=== PATIENT | female | born 1940 | race Caucasian/White ===

== ENCOUNTER → 2021-04-19 09:45 | Outpatient (CLI) | payer MEDICARE, OTHER, SELFPAY ==
[2021-04-19 10:33] LABS: 585 Gram Check PASS; Dizziness NO; Postdiastolic BP 77; Postsystolic BP 129; Prediastolic 72; Presystolic 158; Pulse 64; Site of phlebotomy LAC; Swelling NO; Temperature 97.8; Therapeutic Phleb Comment NO COMMENT; Zero Check Sebra Scale PASS
== END ==
PROVIDERS: Family Provider Internal Medicine; PCP Internal Medicine; Referring Provider Internal Medicine; Visit Provider Internal Medicine
DX: E80.1 Porphyria cutanea tarda (principal)
CPT/HCPCS: 99195

== ENCOUNTER → 2021-06-14 12:50 | Outpatient (CLI) | payer MEDICARE, OTHER, SELFPAY ==
[2021-06-14 13:39] LABS: 585 Gram Check PASS; Dizziness NO; Postdiastolic BP 83; Postsystolic BP 140; Prediastolic 83; Presystolic 133; Pulse 85; Site of phlebotomy RAC; Swelling NO; Temperature 96.4; Therapeutic Phleb Comment NO COMMENT; Zero Check Sebra Scale PASS
[2021-06-14 14:23] LABS: Add Manual Diff / Slide Review NO; Basophils Absolute Auto 100 /uL (0-100); Basophils Percent Auto 1.2 % (0-2); Eosinophils Absolute Auto 200 /uL (0-450); Eosinophils Percent Auto 2.1 % (2-4); Hematocrit 43.1 % (36-46); Hemoglobin 14.2 g/dL (12.0-16.0); Lymphocytes Absolute Auto 1600 /uL (1100-4500); Lymphocytes Percent Auto 14.4 % (25-40); Mean Corpuscular Hemoglobin 29.5 PG (26-34); Mean Corpuscular Volume 89.4 fL (80-100); Monocytes Absolute Auto 1300 /uL (0-900); Monocytes Percent Auto 11.5 % (3-14); Neutrophils Absolute Auto 7700 /uL (1500-7000); Neutrophils Percent Auto 70.8 % (50-75); Platelet Count 282 X10^3/uL (150-400); Red Blood Cell Count 4.82 X10^6/uL (4.0-5.2); Red Cell Distribution Width 12.8 % (11.6-14.8); White Blood Cell Count 10.9 X10^3/uL (4.5-11.0)
[2021-06-14 15:10] LABS: Thyroid Stimulating Hormone 9.68 uIU/mL (0.47-4.68)
[2021-06-14 15:14] LABS: Ferritin 32 ng/mL (11-264)
== END ==
PROVIDERS: Family Provider Internal Medicine; PCP Internal Medicine; Referring Provider Internal Medicine; Visit Provider Internal Medicine
DX: E80.20 Unspecified porphyria (principal); E03.9 Hypothyroidism, unspecified
CPT/HCPCS: 82728; 84439; 84443; 85025; 99195

== ENCOUNTER → 2021-06-20 10:52 | Outpatient (CLI) | payer MEDICARE, OTHER, SELFPAY ==
--- NOTE | 2021-06-20 | DI.US.S_ITS ---
PROCEDURE: US PELVIC COMPLETE INDICATIONS: PELVIC PAIN TECHNIQUE: Real-time scanning was performed of the pelvic organs, with image documentation. Additional endovaginal scanning was necessary due to incomplete visualization of the adnexal and endometrial structures by transabdominal scanning. COMPARISON: None. FINDINGS: Uterus: Prior hysterectomy. Ovaries: Ovaries not identified. No adnexal masses seen. Other: No pathologic free abdominal or pelvic fluid. IMPRESSION: Limited exam demonstrating no source for pelvic pain. If pelvic pain persists, consider CT. We strive to produce accurate, complete, and clear reports of imaging services. To assist us in improving patient care, this report was composed using standard report templates and voice recognition software. Therefore, it may contain abnormal punctuation, insertions and/or omissions. Occasional wrong-word or sound-alike substitutions may occur. Though we review the report and make efforts to correct it, we do recommend that the report be read carefully in proper context to recognize any text inaccuracies. Dictated by: Jeevan Kirk Bekah Interpreted: Jayesh Jamison MD on 06/20/2021 at 11:57 Transcribed by: LAITH on 06/20/2021 at 11:58 Approved by: Jayesh Jamison M.D. on 06/20/2021 at 16:33
== END ==
PROVIDERS: Family Provider Internal Medicine; PCP Internal Medicine; Referring Provider Internal Medicine; Visit Provider Internal Medicine
DX: R10.2 Pelvic and perineal pain (principal)
CPT/HCPCS: 76830; 76856

== ENCOUNTER → 2021-08-26 11:54 | Outpatient (CLI) | payer MEDICARE, OTHER, SELFPAY ==
[2021-08-26 13:03] LABS: Add Manual Diff / Slide Review NO; Basophils Absolute Auto 100 /uL (0-100); Basophils Percent Auto 1.3 % (0-2); Eosinophils Absolute Auto 300 /uL (0-450); Eosinophils Percent Auto 2.8 % (2-4); Hematocrit 41.5 % (36-46); Hemoglobin 13.9 g/dL (12.0-16.0); Lymphocytes Absolute Auto 1600 /uL (1100-4500); Lymphocytes Percent Auto 17.5 % (25-40); Mean Corpuscular HGB Conc 33.6 % (30-36); Mean Corpuscular Hemoglobin 29.8 PG (26-34); Mean Corpuscular Volume 88.7 fL (80-100); Monocytes Absolute Auto 1100 /uL (0-900); Monocytes Percent Auto 12.4 % (3-14); Neutrophils Absolute Auto 6100 /uL (1500-7000); Platelet Count 306 X10^3/uL (150-400); Red Blood Cell Count 4.67 X10^6/uL (4.0-5.2); Red Cell Distribution Width 13.5 % (11.6-14.8); White Blood Cell Count 9.3 X10^3/uL (4.5-11.0)
[2021-08-26 13:10] LABS: 585 Gram Check PASS; Dizziness NO; Postdiastolic BP 87; Postsystolic BP 143; Prediastolic 77; Presystolic 160; Pulse 92; Site of phlebotomy RAC; Swelling NO; Temperature 96.7; Therapeutic Phleb Comment NO COMMENT; Zero Check Sebra Scale PASS
[2021-08-26 14:24] LABS: Alanine Aminotransferase 18 IU/L (<35); Albumin 3.9 g/dL (3.5-5.0); Albumin Globulin Ratio 1.3 (1.0-2.8); Alkaline Phosphatase 72 U/L (38-126); Aspartate Aminotransferase 22 IU/L (14-36); BUN Creatinine Ratio 43.2 (6-22); Bilirubin Total 0.4 mg/dL (0.2-1.3); Blood Urea Nitrogen 32 mg/dL (7-17); C-Reactive Protein Quant < 0.5 mg/dL (<1.0); Calcium 9.3 mg/dL (8.4-10.2); Carbon Dioxide 27 mmol/L (22-32); Chloride 100 mmol/L (98-107); Estimated Glomerular Filt Rate > 60.0 mL/min (>60); Glucose 94 mg/dL (80-110); HEMOLYSIS < 15 (0-50); Potassium 4.1 mmol/L (3.4-5.1); Sodium 133 mmol/L (137-145); Total Protein 6.9 g/dL (6.3-8.2)
== END ==
PROVIDERS: Internal Medicine; Family Provider Internal Medicine; PCP Internal Medicine; Referring Provider Internal Medicine; Visit Provider Internal Medicine
DX: E80.20 Unspecified porphyria (principal); M06.9 Rheumatoid arthritis, unspecified; Z79.899 Other long term (current) drug therapy
CPT/HCPCS: 36415; 80053; 85025; 86140; 99195

== ENCOUNTER → 2021-10-11 16:16 | Outpatient (CLI) | payer MEDICARE, OTHER, SELFPAY ==
[2021-10-11 17:33] LABS: Add Manual Diff / Slide Review NO; Basophils Absolute Auto 200 /uL (0-100); Basophils Percent Auto 1.5 % (0-2); Eosinophils Absolute Auto 200 /uL (0-450); Hematocrit 40.7 % (36-46); Hemoglobin 13.5 g/dL (12.0-16.0); Lymphocytes Absolute Auto 1800 /uL (1100-4500); Lymphocytes Percent Auto 16.8 % (25-40); Mean Corpuscular Hemoglobin 29.3 PG (26-34); Mean Corpuscular Volume 88.6 fL (80-100); Monocytes Absolute Auto 1200 /uL (0-900); Monocytes Percent Auto 11.2 % (3-14); Neutrophils Absolute Auto 7500 /uL (1500-7000); Neutrophils Percent Auto 68.5 % (50-75); Platelet Count 295 X10^3/uL (150-400); Red Blood Cell Count 4.59 X10^6/uL (4.0-5.2); Red Cell Distribution Width 13.3 % (11.6-14.8); White Blood Cell Count 10.9 X10^3/uL (4.5-11.0)
[2021-10-11 17:48] LABS: Alanine Aminotransferase 18 IU/L (<35); Albumin 4.1 g/dL (3.5-5.0); Albumin Globulin Ratio 1.3 (1.0-2.8); Alkaline Phosphatase 76 U/L (38-126); Aspartate Aminotransferase 27 IU/L (14-36); BUN Creatinine Ratio 44.3 (6-22); Bilirubin Total 0.3 mg/dL (0.2-1.3); Blood Urea Nitrogen 35 mg/dL (7-17); Carbon Dioxide 31 mmol/L (22-32); Chloride 100 mmol/L (98-107); Estimated Glomerular Filt Rate > 60 mL/min (>60); Globulin 3.2 g/dL (1.7-4.1); Glucose 97 mg/dL (80-110); HEMOLYSIS < 15 (0-50); Potassium 3.9 mmol/L (3.4-5.1); Sodium 137 mmol/L (137-145); Total Protein 7.3 g/dL (6.3-8.2)
[2021-10-11 18:23] LABS: Ferritin 25 ng/mL (11-264)
== END ==
PROVIDERS: Internal Medicine Medical Oncology; Family Provider Internal Medicine; PCP Internal Medicine; Referring Provider Internal Medicine; Visit Provider Internal Medicine
DX: R01.1 Cardiac murmur, unspecified (principal); E80.1 Porphyria cutanea tarda
CPT/HCPCS: 36415; 80053; 82728; 85025

== ENCOUNTER → 2021-11-02 13:43 | Outpatient (CLI) | payer MEDICARE, OTHER, SELFPAY ==
[2021-11-02 15:53] LABS: COVID19 -Nasal RAPID Negative (Negative)
== END ==
PROVIDERS: Family Provider Internal Medicine; PCP Internal Medicine; Visit Provider Family Medicine Sleep Medicine
DX: Z20.822 Contact with and (suspected) exposure to COVID-19 (principal); Z01.812 Encounter for preprocedural laboratory examination
CPT/HCPCS: 87635; C9803

== ENCOUNTER → 2021-11-03 10:06 | Outpatient (CLI) | payer MEDICARE, OTHER, SELFPAY ==
--- NOTE | 2021-11-03 | DI.ECHO.S_ITS ---
[facility]---------+ [facility] +---------+ : : [address] : : : : [id number] : : : : Phone: [phone]---------+ Echocardiogram Report + + :Name: HAROON PACE Study Date: 11/03/2021 Height: 63 in : :[facility] ReadingLocation: Weight: 145 lb : : Gender: Female BSA: 1.7 m2 : :: 1940 Age: 81 yrs BP: 148/77 mmHg: :Reason For Study: SHORTNESS OF BREATH : :Ordering Physician: XIANG, : :KAMILA Shetty Performed By: Celia Herrera : :Referring: KAMILA OTOOLE : + + Interpretation Summary The left ventricle is normal in size. Left ventricular systolic function appears normal without focal wall motion abnormalities. The ejection fraction is estimated to be 65-70%. The right ventricle is borderline dilated. The right ventricular systolic function is normal. The right ventricular systolic pressure is estimated to be at least 23 mmHg based on an estimated right atrial pressure of 3 mm Hg. The left atrium is mildly dilated. Right atrial size is normal. There is no significant valvular heart disease. The aortic root is normal size. Mild atherosclerotic plaque(s) in the aortic arch. Procedure: A two-dimensional transthoracic echocardiogram with color flow and Doppler was performed. The study quality was technically adequate. There is no prior echocardiogram noted for this patient. The patient was in sinus rhythm with heart rates between 75-85 bpm during the exam. Left Ventricle: The left ventricle is normal in size. Proximal septal thickening is noted. Left ventricular systolic function appears normal without focal wall motion abnormalities. The ejection fraction is estimated to be 65- 70%. Diastolic function could not be accurately assessed due to contradictory data. Right Ventricle: The right ventricle is borderline dilated. The right ventricular systolic function is normal. Atria: The left atrium is mildly dilated. Right atrial size is normal. There is no Doppler evidence for an interatrial shunt. Mitral Valve: The mitral valve is normal in structure and function. There is trace mitral regurgitation. Aortic Valve: The aortic valve is trileaflet. The aortic valve opens well. There is no aortic valve stenosis. No aortic regurgitation is present. Tricuspid Valve: The tricuspid valve is normal in structure and function. There is mild tricuspid regurgitation. The right ventricular systolic pressure is estimated to be at least 23 mmHg based on an estimated right atrial pressure of 3 mm Hg. Pulmonic Valve: The pulmonic valve leaflets are thin and pliable; valve motion is normal. There is no pulmonic valvular regurgitation. There is no significant valvular heart disease. Great Vessels: The aortic root is normal size. The dimensions of the ascending aorta are normal. Mild atherosclerotic plaque(s) in the aortic arch. The IVC is of normal diameter and collapses greater than 50% with a sniff. This suggests a low right atrial pressure of 3 mm Hg. Pericardium/ Pleura There is no pericardial effusion. There is no pleural effusion. MMode/2D Measurements & Calculations LVIDd: 4.2 cm LVOT diam: 2.0 cm LVIDs: 2.6 cm Ao root diam: 3.1 cm FS: 36.5 % asc Aorta Diam: 3.1 cm IVSd: 0.70 cm Ao Arch Diam (Prox Trans): 2.1 cm LVPWd: 0.86 cm LV alvarez. diameter/BSA (cm/m^2): 2.5 LV sys. diameter/BSA (cm/m^2): 1.6 LA A2 area: 21.7 cm2 RA long axis: 4.5 cm LA A4 area: 17.8 cm2 RA area: 13.9 cm2 LA length (vol): 5.5 cm RA vol: 36.3 ml LA vol: 59.1 ml RA : 21.5 ml/m2 LA vol index: 35.1 ml/m2 IVC diam: 1.5 cm RVD1 (basal): 4.0 cm RVD2 (mid): 3.8 cm TAPSE: 2.1 cm Doppler Measurements & Calculations Ao V2 max: 176.9 cm/sec LVOT Max Jair: 114.8 cm/sec Ao V2 mean: 128.9 cm/sec LV V1 max P.3 mmHg Ao max P.5 mmHg LV V1 VTI: 28.0 cm Ao mean P.3 mmHg VICTORIA(I,D): 2.1 cm2 Ao V2 VTI: 39.8 cm VICTORIA(V,D): 2.0 cm2 sev ratio: 0.70 VICTORIA indexed to BSA (cm^2/m^2): 1.3 MV E max jair: 84.6 cm/sec TR max jair: 221.4 cm/sec MV A max jair: 109.2 cm/sec TR max P.6 mmHg MV E/A: 0.77 PA V2 max: 100.1 cm/sec Med Peak E' Jair: 5.7 cm/sec PA V2 mean: 73.7 cm/sec E/E' med: 15.0 PA mean P.3 mmHg Lat Peak E' Jair: 6.9 cm/sec PA pr(Accel): 24.2 mmHg E/E' lat: 12.3 E/e' average: 13.6 MV dec time: 0.33 sec SV(LVOT): 85.0 ml Reading Physician:05:55 PM
--- NOTE | 2021-11-04 19:43 | DI.NM.S_ITS ---
DATE OF SERVICE: 11/03/2021 PROCEDURE PERFORMED: Exercise treadmill stress and rest myocardial perfusion imaging with gating to assess ejection fraction and regional wall motion. ORDERING PROVIDER: Dr. Roderick Nolen. INDICATIONS: The patient is an 81-year-old female with reports of exertional chest discomfort and dyspnea. EXERCISE TREADMILL TESTING: The patient was able to exercise for a total of 6 minutes, 16 seconds on a slightly modified Armando protocol, suggesting excellent exercise capacity with an SIMONA around -31%. The stage II speed was reduced from 2.3 to 2.2 mph because of limiting knee pain, but the grade was increased from 12% to 14%, likely producing equivalent amount of stress. With this, she had a borderline heart rate response, achieving a maximum heart rate of 118 BPM (84% of her predicted maximum). She had a normal blood pressure response. She had no chest discomfort or other anginal symptoms. Her resting ECG shows repolarization abnormalities in the inferior leads that remain unchanged with stress. There were no significant arrhythmias. At 5 minutes of exercise, at a heart rate of 114 BPM, 24.3 millicuries of technetium-99m Myoview was injected and she was imaged 20 minutes later using a gated SPECT acquisition protocol. The day prior while at rest, she had been injected with 25.6 millicuries of technetium-99m Myoview and was imaged 30 minutes later, again using a gated SPECT acquisition protocol. FINDINGS: 1. Raw data: There is fairly good myocardial tracer uptake. The lung/heart ratio was slightly increased at 0.44, which can be a sign of pulmonary congestion although is not visually evident. The TID ratio was normal at 0.70. 2. Quantitated gated SPECT: Post-stress ejection fraction is estimated at 97%, an overestimate because of small left ventricular volumes. There are no focal wall motion abnormalities. Resting ejection fraction is 96%, again likely an overestimate, with a normal end-diastolic volume of 73 mL. 3. Myocardial perfusion imaging: Post-stress supine images shows a completely normal myocardial perfusion pattern without any perfusion defects, supported by normal perfusion imaging in the prone position. The resting images show an identical perfusion pattern without any areas of improvement. IMPRESSION: 1. Normal myocardial perfusion study for ischemia. 2. No perfusion defects to suggest myocardial ischemia or previous myocardial infarction. 3. High-normal left ventricular systolic function without focal wall motion abnormality. There is a mildly increased lung/heart ratio which can indicate pulmonary congestion but is somewhat nonspecific and clinical correlation is recommended. 4. Excellent exercise capacity with a borderline blunted heart rate response. She had no angina or change in her baseline repolarization abnormalities to suggest ischemia. There were no arrhythmias. Ibis Skinner - FELTON/donald/meli doc#: [id number]/job#: [id number] dd: 11/04/2021 17:09:00 dt: 11/04/2021 18:06:00 DICTATING MD/COPIES TO: Roderick Guerrero MD; Roderick Nolen M.D. COPIES MNE: PARMINDER;
== END ==
PROVIDERS: Family Provider Internal Medicine; PCP Internal Medicine; Referring Provider Internal Medicine; Visit Provider Internal Medicine
DX: R06.02 Shortness of breath (principal); I70.0 Atherosclerosis of aorta; I07.1 Rheumatic tricuspid insufficiency
CPT/HCPCS: 78452; 93017; 93306; A9502

== ENCOUNTER → 2022-01-24 15:38 | Outpatient (CLI) | payer MEDICARE, OTHER, SELFPAY ==
[2022-01-24 17:45] LABS: Free T3, Triiodothyronine Free 3.12 pg/mL (2.77-5.27); Free T4, Direct Thyroxine 1.55 ng/dL (0.78-2.19)
[2022-01-24 17:59] LABS: Thyroid Stimulating Hormone 0.709 uIU/mL (0.47-4.68)
== END ==
PROVIDERS: Family Provider Internal Medicine; PCP Pediatrics; Referring Provider Pediatrics; Visit Provider Pediatrics
DX: E03.9 Hypothyroidism, unspecified (principal)
CPT/HCPCS: 36415; 84439; 84443; 84481

== ENCOUNTER → 2023-01-17 10:52 | Outpatient (CLI) | payer MEDICARE, OTHER, SELFPAY ==
[2023-01-17 11:42] LABS: Hemoglobin 14.8 g/dL (12.0-16.0); Mean Corpuscular HGB Conc 33.6 % (30-36); Mean Corpuscular Hemoglobin 29.6 PG (26-34); Mean Corpuscular Volume 88.1 fL (80-100); Platelet Count 316 X10^3/uL (150-400); Red Blood Cell Count 4.99 X10^6/uL (4.0-5.2); Red Cell Distribution Width 13.1 % (11.6-14.8); White Blood Cell Count 9.6 X10^3/uL (4.5-11.0)
[2023-01-17 12:13] LABS: BUN Creatinine Ratio 38.3 (6-22); Blood Urea Nitrogen 23 mg/dL (7-17); Calcium 9.3 mg/dL (8.4-10.2); Carbon Dioxide 32 mmol/L (22-32); Chloride 98 mmol/L (98-107); Estimated Glomerular Filt Rate > 60 mL/min (>60); Glucose 56 mg/dL (80-110); HEMOLYSIS < 15 (0-50); Potassium 3.9 mmol/L (3.4-5.1); Sodium 137 mmol/L (137-145)
[2023-01-17 12:44] LABS: TSH w/ Reflex to FT4 0.43 uIU/mL (0.47-4.68)
[2023-01-17 13:18] LABS: Free T4, Direct Thyroxine 2.16 ng/dL (0.78-2.19)
[2023-01-17 17:08] LABS: Creatinine Urine Random 48.3 mg/dL
[2023-01-17 17:11] LABS: Microalbumi Creatinin Ratio Ur 18.6 ug/mg CR (<30); Microalbumin Urine Random 0.9 mg/dL (0-1.6)
== END ==
PROVIDERS: Family Provider Internal Medicine; PCP Family Medicine; Referring Provider Family Medicine; Visit Provider Family Medicine
DX: E03.9 Hypothyroidism, unspecified (principal); M81.0 Age-related osteoporosis without current pathological fracture; E78.5 Hyperlipidemia, unspecified; I10 Essential (primary) hypertension; M06.9 Rheumatoid arthritis, unspecified
CPT/HCPCS: 36415; 80048; 82043; 82570; 84439; 84443; 85027

== ENCOUNTER → 2023-07-16 11:44 | Outpatient (CLI) | payer MEDICARE, OTHER, SELFPAY ==
[2023-07-16 13:27] LABS: Alanine Aminotransferase 24 IU/L (<35); Albumin 4.2 g/dL (3.5-5.0); Albumin Globulin Ratio 1.3 (1.0-2.8); Alkaline Phosphatase 85 U/L (38-126); Aspartate Aminotransferase 27 IU/L (14-36); BUN Creatinine Ratio 37.9 (6-22); Bilirubin Total 0.6 mg/dL (0.2-1.3); Blood Urea Nitrogen 25 mg/dL (7-17); Calcium 9.7 mg/dL (8.4-10.2); Carbon Dioxide 28 mmol/L (22-32); Chloride 98 mmol/L (98-107); Estimated Glomerular Filt Rate > 60 mL/min (>60); Globulin 3.2 g/dL (1.7-4.1); Glucose 85 mg/dL (80-110); HEMOLYSIS < 15 (0-50); Potassium 4.1 mmol/L (3.4-5.1); Sodium 135 mmol/L (137-145); Total Protein 7.4 g/dL (6.3-8.2)
[2023-07-16 15:19] LABS: Creatinine Urine Random 34.1 mg/dL
[2023-07-16 15:23] LABS: Microalbumi Creatinin Ratio Ur 29.3 ug/mg CR (<30)
[2023-07-16 17:24] LABS: Free T3, Triiodothyronine Free 2.67 pg/mL (2.77-5.27); Free T4, Direct Thyroxine 1.51 ng/dL (0.78-2.19)
[2023-07-16 17:36] LABS: Thyroid Stimulating Hormone 3.77 uIU/mL (0.47-4.68)
== END ==
PROVIDERS: Family Provider Internal Medicine; PCP Family Medicine; Referring Provider Family Medicine; Visit Provider Family Medicine
DX: I10 Essential (primary) hypertension (principal); E03.9 Hypothyroidism, unspecified; M81.0 Age-related osteoporosis without current pathological fracture
CPT/HCPCS: 36415; 80053; 82043; 82570; 84439; 84443; 84481

== ENCOUNTER → 2023-08-09 11:09 | Outpatient (CLI) | payer MEDICARE, OTHER, SELFPAY ==
[2023-08-09 11:38] LABS: Add Manual Diff / Slide Review NO; Basophils Absolute Auto 100 /uL (0-100); Basophils Percent Auto 1.3 % (0-2); Eosinophils Absolute Auto 200 /uL (0-450); Eosinophils Percent Auto 2.1 % (2-4); Hematocrit 44.8 % (36-46); Lymphocytes Absolute Auto 1500 /uL (1100-4500); Mean Corpuscular HGB Conc 33.6 % (30-36); Mean Corpuscular Volume 89.5 fL (80-100); Monocytes Absolute Auto 1100 /uL (0-900); Monocytes Percent Auto 12.7 % (3-14); Neutrophils Absolute Auto 6000 /uL (1500-7000); Neutrophils Percent Auto 66.9 % (50-75); Platelet Count 375 X10^3/uL (150-400); Red Blood Cell Count 5.01 X10^6/uL (4.0-5.2); Red Cell Distribution Width 13.4 % (11.6-14.8)
[2023-08-09 11:52] LABS: Alanine Aminotransferase 24 IU/L (<35); Albumin 4.5 g/dL (3.5-5.0); Albumin Globulin Ratio 1.3 (1.0-2.8); Alkaline Phosphatase 91 U/L (38-126); Aspartate Aminotransferase 31 IU/L (14-36); BUN Creatinine Ratio 42.1 (6-22); Bilirubin Total 0.6 mg/dL (0.2-1.3); Blood Urea Nitrogen 24 mg/dL (7-17); Calcium 9.4 mg/dL (8.4-10.2); Carbon Dioxide 28 mmol/L (22-32); Chloride 100 mmol/L (98-107); Creatine Kinase 35 U/L (30-135); Estimated Glomerular Filt Rate > 60 mL/min (>60); Globulin 3.6 g/dL (1.7-4.1); Glucose 104 mg/dL (80-110); HEMOLYSIS < 15 (0-50); Sodium 136 mmol/L (137-145); Total Protein 8.1 g/dL (6.3-8.2)
[2023-08-09 12:08] LABS: Troponin I < 0.012 ng/mL (0.01-0.034)
[2023-08-09 12:11] LABS: Free T4, Direct Thyroxine 1.93 ng/dL (0.78-2.19)
[2023-08-09 12:24] LABS: Thyroid Stimulating Hormone 1.98 uIU/mL (0.47-4.68)
[2023-08-21 16:08] LABS: Magnesium, RBC 4.6 mg/dL (3.7-7.0)
== END ==
PROVIDERS: Family Provider Internal Medicine; PCP Family Medicine; Referring Provider Family Medicine; Visit Provider Family Medicine
DX: I10 Essential (primary) hypertension (principal); E03.9 Hypothyroidism, unspecified; M81.0 Age-related osteoporosis without current pathological fracture; D69.6 Thrombocytopenia, unspecified
CPT/HCPCS: 36415; 80053; 82550; 83735; 84439; 84443; 84481; 84484; 85025

== ENCOUNTER → 2023-10-11 13:09 | Outpatient (CLI) | payer MEDICARE, OTHER, SELFPAY ==
[2023-10-11 14:36] LABS: Hematocrit 44.1 % (36-46)
[2023-10-11 15:44] LABS: Ferritin 38 ng/mL (11-264)
== END ==
PROVIDERS: Family Provider Internal Medicine; PCP Family Medicine; Referring Provider Internal Medicine Hematology & Oncology; Visit Provider Internal Medicine Hematology & Oncology
DX: E80.1 Porphyria cutanea tarda (principal)
CPT/HCPCS: 36415; 82728; 85014

== ENCOUNTER → 2023-10-19 09:48 | Outpatient (CLI) | payer MEDICARE, OTHER, SELFPAY ==
[2023-10-19 11:11] LABS: Add Manual Diff / Slide Review NO; Basophils Absolute Auto 200 /uL (0-100); Basophils Percent Auto 1.8 % (0-2); Eosinophils Absolute Auto 200 /uL (0-450); Eosinophils Percent Auto 1.8 % (2-4); Hematocrit 40.4 % (36-46); Hemoglobin 13.6 g/dL (12.0-16.0); Lymphocytes Absolute Auto 2000 /uL (1100-4500); Lymphocytes Percent Auto 18.3 % (25-40); Mean Corpuscular HGB Conc 33.6 % (30-36); Mean Corpuscular Hemoglobin 30.1 PG (26-34); Mean Corpuscular Volume 89.5 fL (80-100); Monocytes Absolute Auto 1400 /uL (0-900); Monocytes Percent Auto 12.8 % (3-14); Neutrophils Absolute Auto 7100 /uL (1500-7000); Neutrophils Percent Auto 65.3 % (50-75); Platelet Count 456 X10^3/uL (150-400); Red Blood Cell Count 4.51 X10^6/uL (4.0-5.2); Red Cell Distribution Width 14.2 % (11.6-14.8); White Blood Cell Count 10.8 X10^3/uL (4.5-11.0)
[2023-10-19 11:33] LABS: Alanine Aminotransferase 21 IU/L (<35); Albumin 4.3 g/dL (3.5-5.0); Albumin Globulin Ratio 1.5 (1.0-2.8); Alkaline Phosphatase 79 U/L (38-126); Aspartate Aminotransferase 27 IU/L (14-36); BUN Creatinine Ratio 44.3 (6-22); Bilirubin Total 0.6 mg/dL (0.2-1.3); Blood Urea Nitrogen 27 mg/dL (7-17); Calcium 9.3 mg/dL (8.4-10.2); Carbon Dioxide 29 mmol/L (22-32); Chloride 102 mmol/L (98-107); Estimated Glomerular Filt Rate > 60 mL/min (>60); Globulin 2.9 g/dL (1.7-4.1); Glucose 103 mg/dL (80-110); HEMOLYSIS < 15 (0-50); Potassium 4.4 mmol/L (3.4-5.1); Sodium 136 mmol/L (137-145); Total Protein 7.2 g/dL (6.3-8.2)
[2023-10-19 11:38] LABS: C-Reactive Protein Quant < 0.5 mg/dL (<1.0)
[2023-10-19 11:48] LABS: Free T3, Triiodothyronine Free 2.72 pg/mL (2.77-5.27)
[2023-10-19 12:01] LABS: Thyroid Stimulating Hormone 6.87 uIU/mL (0.47-4.68)
== END ==
PROVIDERS: Family Provider Internal Medicine; PCP Family Medicine; Referring Provider Internal Medicine; Visit Provider Internal Medicine
DX: M05.79 Rheumatoid arthritis with rheumatoid factor of multiple sites without organ or systems involvement (principal); I10 Essential (primary) hypertension; D69.6 Thrombocytopenia, unspecified; E03.9 Hypothyroidism, unspecified
CPT/HCPCS: 36415; 80053; 84439; 84443; 84481; 85025; 86140

== ENCOUNTER → 2023-11-13 15:09 | Outpatient (CLI) | payer MEDICARE, OTHER, SELFPAY ==
--- NOTE | 2023-11-13 15:11 | DI.ECHO.S_ITS ---
[facility] + + Hospital : : [facility] . : : [facility] : : [place], : : [place] [address] : : Phone: [phone] Echocardiogram Report + + :Name: HAROON PACE Study Date: 11/13/2023 Height: 63 in : :[facility] ReadingLocation: Weight: 156 lb : : Gender: Female BSA: 1.7 m2 : :: 1940 Age: 83 yrs BP: 136/67 mmHg: :Reason For Study: HEART MURMUR : :Ordering Physician: MAUREEN, : :HERRERA Performed By: Fredy Nicholas : :Referring: HERRERA REDDY : + + Interpretation Summary 1) Normal left ventricular thickness, size, wall motion, and systolic function (EF 65-70%). 2) Normal right ventricular size and function. 3) Increased gradient across the LVOT (mean gradient 16mmHg, peak gradient 22mmHg). Visually, no significant valvular stenosis or regurgitation present. No systolic anterior motion of the mitral valve present. The increased gradient may be from high flow state. 4) Compared to the Echo done 11/03/2021, no significant change in cardiac structure. Procedure: A two-dimensional transthoracic echocardiogram with color flow and Doppler was performed. The study quality was technically adequate. Comparison is made with the echocardiogram of 11/03/21. The patient was in sinus rhythm with heart rates between 75-85 bpm during the exam. Left Ventricle: The left ventricle is normal in size. Left ventricular wall thickness is normal. Left ventricular systolic function appears normal without focal wall motion abnormalities. The ejection fraction is estimated to be 65- 70%. Right Ventricle: The right ventricle is normal size. The right ventricular systolic function is normal. Atria: The left atrial size is normal. Right atrial size is normal. The interatrial septum grossly appears intact with no obvious evidence for an atrial septal defect. Mitral Valve: The mitral valve is normal. No systolic anterior motion of the mitral valve. There is no mitral valve stenosis. There is trace mitral regurgitation. Aortic Valve: The aortic valve is trileaflet. The aortic valve is mildly calcified. No aortic stenosis visually. No aortic regurgitation is present. Tricuspid Valve: The tricuspid valve is not well visualized, but is grossly normal. There is no tricuspid stenosis. There is a trace or physiologic amount of tricuspid regurgitation. Pulmonic Valve: The pulmonic valve is not well visualized. There is no pulmonic valvular stenosis. There is no pulmonic valvular regurgitation. Great Vessels: The aortic root is normal size. The ascending aorta could not be visualized. Mild atherosclerotic plaque(s) in the aortic arch. The IVC is of normal diameter and collapses greater than 50% with a sniff. This suggests a low right atrial pressure of 3 mm Hg. Pericardium/ Pleura There is no pericardial effusion. There is no pleural effusion. MMode/2D Measurements & Calculations LVIDd: 3.5 cm LVOT diam: 2.1 cm LVIDs: 2.2 cm Ao root diam: 2.8 cm IVSd: 1.3 cm asc Aorta Diam: 2.9 cm LVPWd: 0.89 cm Ao Arch Diam (Prox Trans): 2.6 cm LV alvarez. diameter/BSA (cm/m^2): 2.0 LV sys. diameter/BSA (cm/m^2): 1.2 FS: 38.2 % LA A2 area: 15.7 cm2 RA long axis: 4.4 cm LA A4 area: 19.2 cm2 RA area: 13.3 cm2 LA length (vol): 5.3 cm RA vol: 34.1 ml LA vol: 48.1 ml RA : 19.6 ml/m2 LA vol index: 27.7 ml/m2 RVD1 (basal): 3.7 cm IVC diam: 1.8 cm RVD2 (mid): 3.2 cm TAPSE: 2.9 cm Doppler Measurements & Calculations Ao V2 max: 235.3 cm/sec MV E max jair: 70.9 cm/sec Ao V2 mean: 196.0 cm/sec MV A max jair: 100.0 cm/sec Ao V2 VTI: 60.4 cm MV E/A: 0.71 Ao max P.2 mmHg Med Peak E' Jair: 6.3 cm/sec Ao mean P.9 mmHg E/E' med: 11.3 Lat Peak E' Jair: 8.2 cm/sec E/E' lat: 8.7 E/e' average: 10.0 MV dec time: 0.22 sec PA V2 max: 122.2 cm/sec PA V2 mean: 89.1 cm/sec PA mean P.4 mmHg PA pr(Accel): 36.2 mmHg Reading Physician:05:14 PM
--- NOTE | 2023-11-13 15:11 | DI.MG.S_ITS ---
UNILATERAL LEFT DIGITAL SCREENING MAMMOGRAM 3D/2D WITH CAD POST MASTECTOMY: 11/13/2023 CLINICAL: Routine screening. Personal history of right breast cancer. Comparison is made to exams dated: 01/19/2020 mammogram, 12/16/2018 mammogram, and 12/12/2018 mammogram - [facility]. There are scattered areas of fibroglandular density in the left breast (category b / 25%-50% glandular tissue). Current study was also evaluated with a Computer Aided Detection (CAD) system. There is a focal asymmetry in the left breast at 12 o'clock middle depth. No other significant masses or calcifications are seen in the breast. IMPRESSION: INCOMPLETE: NEEDS ADDITIONAL IMAGING EVALUATION The focal asymmetry in the left breast is indeterminate. Additional views with possible ultrasound are recommended. This exam was interpreted at Station ID: [id number]. NOTE: For mammograms, a report in lay terms will be sent to the patient. Approximately 15% of breast malignancies will not be visualized mammographically. In the management of a palpable breast mass, a negative mammogram must not discourage biopsy of a clinically suspicious lesion. Electronically Signed By: Maki cee/julieta:11/14/2023 16:08:26 letter sent: Additional Imaging Needed ACR BI-RADS Category 0: Incomplete 3340F
== END ==
PROVIDERS: Family Provider Internal Medicine; PCP Family Medicine; Referring Provider Family Medicine; Visit Provider Family Medicine
DX: Z12.31 Encounter for screening mammogram for malignant neoplasm of breast (principal); Z85.3 Personal history of malignant neoplasm of breast; R92.322 Mammographic fibroglandular density, left breast; I70.0 Atherosclerosis of aorta; I10 Essential (primary) hypertension; R01.1 Cardiac murmur, unspecified; Z90.11 Acquired absence of right breast and nipple
CPT/HCPCS: 77063; 77067; 93306

== ENCOUNTER → 2023-11-29 11:46 | Outpatient (CLI) | payer MEDICARE, OTHER, SELFPAY ==
[2023-11-29 13:08] LABS: Add Manual Diff / Slide Review NO; Basophils Absolute Auto 100 /uL (0-100); Basophils Percent Auto 1.1 % (0-2); Eosinophils Absolute Auto 300 /uL (0-450); Eosinophils Percent Auto 2.4 % (2-4); Hematocrit 43.4 % (36-46); Hemoglobin 14.6 g/dL (12.0-16.0); Lymphocytes Absolute Auto 1700 /uL (1100-4500); Lymphocytes Percent Auto 15.4 % (25-40); Mean Corpuscular HGB Conc 33.7 % (30-36); Mean Corpuscular Hemoglobin 29.7 PG (26-34); Mean Corpuscular Volume 88.2 fL (80-100); Monocytes Absolute Auto 1100 /uL (0-900); Monocytes Percent Auto 10.4 % (3-14); Neutrophils Absolute Auto 7600 /uL (1500-7000); Neutrophils Percent Auto 70.7 % (50-75); Platelet Count 352 X10^3/uL (150-400); Red Blood Cell Count 4.92 X10^6/uL (4.0-5.2); Red Cell Distribution Width 12.8 % (11.6-14.8); White Blood Cell Count 10.7 X10^3/uL (4.5-11.0)
[2023-11-29 13:50] LABS: Free T3, Triiodothyronine Free 2.98 pg/mL (2.77-5.27); Free T4, Direct Thyroxine 1.29 ng/dL (0.78-2.19)
[2023-11-29 14:03] LABS: Thyroid Stimulating Hormone 3.58 uIU/mL (0.47-4.68)
[2023-11-29 14:06] LABS: Ferritin 31 ng/mL (11-264)
== END ==
PROVIDERS: Family Provider Internal Medicine; PCP Family Medicine; Referring Provider Family Medicine; Visit Provider Family Medicine
DX: E03.9 Hypothyroidism, unspecified (principal); D69.6 Thrombocytopenia, unspecified; E80.1 Porphyria cutanea tarda; R79.89 Other specified abnormal findings of blood chemistry
CPT/HCPCS: 36415; 82728; 84439; 84443; 84481; 85025

== ENCOUNTER → 2023-12-05 11:51 | Outpatient (CLI) | payer MEDICARE, OTHER, SELFPAY ==
--- NOTE | 2023-12-05 11:52 | DI.US.S_ITS ---
ULTRASOUND OF LEFT BREAST: 12/05/2023 CLINICAL: Follow up from addtional views. Comparison is made to exams dated: 12/05/2023 mammogram, 11/13/2023 mammogram - [facility], 01/19/2020 mammogram, and 01/14/2019 breast MRI - [facility]. Color flow and real-time ultrasound of the left breast were performed. There is a 7 mm oval focus of glandular tissue in the left breast at 12 o'clock middle depth. This oval area of tissue is isoechoic to other areas of glandular tissue, and correlates with mammography findings. Color flow imaging demonstrates that there is no vascularity present. IMPRESSION: PROBABLY BENIGN The 7 mm oval area of glandular tissue in the left breast corresponds to the residual mammogram finding, is probably benign. A follow-up left mammogram in 6 months is recommended to demonstrate stability. Findings and recommendations were conveyed to the patient at time of exam. This exam was interpreted at Station ID: [id number]. Electronically Signed By: Devora rosado/:12/05/2023 13:37:01 letter sent: Followup Recommended Ultrasound BI-RADS: 3 Probably benign
--- NOTE | 2023-12-05 11:52 | DI.MG.S_ITS ---
UNILATERAL LEFT DIGITAL DIAGNOSTIC MAMMOGRAM 3D/2D WITH ADDITIONAL VIEWS: 12/05/2023 CLINICAL: Additional evaluation requested from prior study. Comparison is made to exams dated: 11/13/2023 mammogram - [facility], 01/19/2020 mammogram, 12/16/2018 mammogram, and 12/12/2018 mammogram - [facility]. There are scattered areas of fibroglandular density in the left breast (category b / 25%-50% glandular tissue). Prior asymmetry in the left breast at 12 o'clock in the middle depth partially dissapates with focal compression. There is a possible residual 0.7 cm asymmetry 5 cm from the nipple. No significant masses, calcifications, or other findings are seen in the breast. IMPRESSION: INCOMPLETE: NEEDS ADDITIONAL IMAGING EVALUATION Partial resolution of screening mammography abnormality with additional views. Ultrasound for further evaluation of a possible residual asymmetry is recommended and was performed immediately following this exam. This exam was interpreted at Station ID: [id number]. NOTE: For mammograms, a report in lay terms will be sent to the patient. Approximately 15% of breast malignancies will not be visualized mammographically. In the management of a palpable breast mass, a negative mammogram must not discourage biopsy of a clinically suspicious lesion. Electronically Signed By: Devora rosado/:12/05/2023 12:58:07 ACR BI-RADS Category 0: Incomplete 3340F
== END ==
PROVIDERS: Family Provider Internal Medicine; PCP Family Medicine; Referring Provider Family Medicine; Visit Provider Family Medicine
DX: R92.8 Other abnormal and inconclusive findings on diagnostic imaging of breast (principal); R92.322 Mammographic fibroglandular density, left breast
CPT/HCPCS: 76642; 77065; G0279

== ENCOUNTER → 2023-12-12 09:38 | Outpatient (CLI) | payer MEDICARE, OTHER, SELFPAY ==
[2023-12-12 10:10] LABS: Add Manual Diff / Slide Review NO; Basophils Absolute Auto 100 /uL (0-100); Basophils Percent Auto 1.4 % (0-2); Eosinophils Absolute Auto 300 /uL (0-450); Eosinophils Percent Auto 3.3 % (2-4); Hematocrit 41.8 % (36-46); Hemoglobin 14.5 g/dL (12.0-16.0); Lymphocytes Absolute Auto 1500 /uL (1100-4500); Lymphocytes Percent Auto 14.8 % (25-40); Mean Corpuscular HGB Conc 34.6 % (30-36); Mean Corpuscular Hemoglobin 30.2 PG (26-34); Mean Corpuscular Volume 87.4 fL (80-100); Monocytes Absolute Auto 1200 /uL (0-900); Monocytes Percent Auto 12.4 % (3-14); Neutrophils Absolute Auto 6800 /uL (1500-7000); Neutrophils Percent Auto 68.1 % (50-75); Platelet Count 385 X10^3/uL (150-400); Red Blood Cell Count 4.79 X10^6/uL (4.0-5.2); Red Cell Distribution Width 13.2 % (11.6-14.8)
[2023-12-12 11:58] LABS: Ferritin 37 ng/mL (11-264)
== END ==
LOC: LAB 09:39
PROVIDERS: Family Provider Internal Medicine; PCP Family Medicine; Referring Provider Family Medicine; Visit Provider Family Medicine
DX: D69.6 Thrombocytopenia, unspecified (principal); E80.1 Porphyria cutanea tarda; R79.89 Other specified abnormal findings of blood chemistry
CPT/HCPCS: 36415; 82728; 85025

== ENCOUNTER → 2023-12-25 13:43 | Outpatient (CLI) | payer MEDICARE, OTHER, SELFPAY ==
[2023-12-25 14:41] LABS: Add Manual Diff / Slide Review NO; Basophils Absolute Auto 100 /uL (0-100); Eosinophils Absolute Auto 300 /uL (0-450); Eosinophils Percent Auto 2.6 % (2-4); Hematocrit 41.8 % (36-46); Hemoglobin 14.1 g/dL (12.0-16.0); Lymphocytes Absolute Auto 1700 /uL (1100-4500); Lymphocytes Percent Auto 17.2 % (25-40); Mean Corpuscular HGB Conc 33.8 % (30-36); Mean Corpuscular Hemoglobin 29.8 PG (26-34); Monocytes Absolute Auto 900 /uL (0-900); Monocytes Percent Auto 8.6 % (3-14); Neutrophils Absolute Auto 7000 /uL (1500-7000); Neutrophils Percent Auto 70.6 % (50-75); Platelet Count 344 X10^3/uL (150-400); Red Blood Cell Count 4.75 X10^6/uL (4.0-5.2); Red Cell Distribution Width 13.5 % (11.6-14.8)
[2023-12-25 15:41] LABS: Ferritin 36 ng/mL (11-264)
[2023-12-28 10:05] LABS: Free T3, Triiodothyronine Free 3.24 pg/mL (2.77-5.27)
== END ==
PROVIDERS: Family Provider Internal Medicine; PCP Family Medicine; Referring Provider Family Medicine; Visit Provider Family Medicine
DX: D69.6 Thrombocytopenia, unspecified (principal); E80.1 Porphyria cutanea tarda; R79.89 Other specified abnormal findings of blood chemistry
CPT/HCPCS: 36415; 82728; 84439; 84443; 84481; 85025

== ENCOUNTER → 2024-01-09 10:44 | Outpatient (CLI) | payer MEDICARE, OTHER, SELFPAY ==
[2024-01-09 11:03] LABS: Hematocrit 44.6 % (36-46); Hemoglobin 14.9 g/dL (12.0-16.0)
[2024-01-09 11:24] LABS: BUN Creatinine Ratio 42.6 (6-22); Blood Urea Nitrogen 26 mg/dL (7-17); Calcium 9.3 mg/dL (8.4-10.2); Carbon Dioxide 24 mmol/L (22-32); Chloride 102 mmol/L (98-107); Estimated Glomerular Filt Rate > 60 mL/min (>60); Glucose 97 mg/dL (80-110); HEMOLYSIS 42 (0-50); Potassium 4.2 mmol/L (3.4-5.1); Sodium 136 mmol/L (137-145)
[2024-01-09 11:35] LABS: 585 Gram Check PASS; Amount Collected in g 585 g; Amount Collected mL calc 508 mL; Patient Weight <110 lb NO; Postdiastolic BP 80 mmHg; Postsystolic BP 151 mmHg; Prediastolic 84 mmHg; Presystolic 154 mmHg; Pulse 88 bpm; Site of phlebotomy Left antecubital; Temperature 97.1; Therapeutic Phleb Consent Chec Consent signed @ reg; Therapeutic Phleb Start Time 1100; Therapeutic Phleb Stop Time 1130; Zero Check Sebra Scale PASS
== END ==
PROVIDERS: Family Provider Internal Medicine; PCP Family Medicine; Referring Provider Family Medicine; Visit Provider Family Medicine
DX: I10 Essential (primary) hypertension (principal); R79.89 Other specified abnormal findings of blood chemistry; R71.8 Other abnormality of red blood cells
CPT/HCPCS: 36415; 80048; 85014; 85018; 99195

== ENCOUNTER → 2024-01-15 12:17 | Outpatient (CLI) | payer MEDICARE, OTHER, SELFPAY ==
[2024-01-15 14:12] LABS: COVID-19 CEPHEID 4-PLEX PCR Negative (Negative); Influenza A - CEPHEID Flu A NEGATIVE (NEGATIVE); Influenza B - CEPHEID Flu B NEGATIVE (NEGATIVE); Respiratory Syncytial Virus Negative (Negative)
== END ==
PROVIDERS: Family Provider Internal Medicine; PCP Family Medicine; Visit Provider Family Medicine
DX: R05.1 Acute cough (principal); E80.1 Porphyria cutanea tarda
CPT/HCPCS: 0241U

== ENCOUNTER → 2024-02-29 14:49 | Outpatient (CLI) | payer MEDICARE, OTHER, SELFPAY ==
[2024-02-29 16:40] LABS: Hematocrit 43.7 % (36-46); Hemoglobin 14.3 g/dL (12.0-16.0); Mean Corpuscular HGB Conc 32.7 % (30-36); Mean Corpuscular Hemoglobin 29.3 PG (26-34); Mean Corpuscular Volume 89.6 fL (80-100); Platelet Count 437 X10^3/uL (150-400); Red Blood Cell Count 4.88 X10^6/uL (4.0-5.2); Red Cell Distribution Width 13.3 % (11.6-14.8); White Blood Cell Count 11.8 X10^3/uL (4.5-11.0)
[2024-02-29 18:13] LABS: Ferritin 29 ng/mL (11-264)
== END ==
PROVIDERS: Family Provider Internal Medicine; PCP Family Medicine; Referring Provider Family Medicine; Visit Provider Family Medicine
DX: E80.1 Porphyria cutanea tarda (principal)
CPT/HCPCS: 36415; 82728; 85027

== ENCOUNTER → 2024-07-07 11:20 | Outpatient (CLI) | payer MEDICARE, OTHER, SELFPAY ==
--- NOTE | 2024-07-07 11:24 | DI.MG.S_ITS ---
UNILATERAL LEFT DIGITAL DIAGNOSTIC MAMMOGRAM 3D/2D: 07/07/2024 CLINICAL: Short term follow up. Comparison is made to exams dated: 12/05/2023 mammogram, 11/13/2023 mammogram - [facility], 12/16/2018 mammogram, 12/12/2018 mammogram, and 12/04/2018 mammogram - [facility]. There are scattered areas of fibroglandular density (category b / 25%-50% glandular tissue). The asymmetry seen in the left breast upper middle depth is less prominent than prior mammogram dating back to 12/05/2023. No prior ultrasound correlate identified. No other significant masses, calcifications, or other findings are seen in the breast. IMPRESSION: PROBABLY BENIGN Left breast asymmetry in the middle upper region, less prominent since November 2023 and without prior ultrasound correlate. Finding is probably benign. Recommend follow-up mammogram in 6 months to demonstrate 1 year stability. Findings and recommendations were conveyed to the patient during today's evaluation. This exam was interpreted at Station ID: [id number]. NOTE: For mammograms, a report in lay terms will be sent to the patient. Approximately 15% of breast malignancies will not be visualized mammographically. In the management of a palpable breast mass, a negative mammogram must not discourage biopsy of a clinically suspicious lesion. Electronically Signed By: Stefania Farfan M.D., Ph.D. eb/:07/07/2024 13:02:06 letter sent: Followup Recommended ACR BI-RADS Category 3: Probably Benign
== END ==
PROVIDERS: Referring Provider Family Medicine; Visit Provider Family Medicine
DX: R92.8 Other abnormal and inconclusive findings on diagnostic imaging of breast (principal); N64.89 Other specified disorders of breast
CPT/HCPCS: 77065; G0279

== ENCOUNTER → 2025-02-23 11:30 | Outpatient (CLI) | payer MEDICARE, OTHER, SELFPAY ==
--- NOTE | 2025-02-23 11:34 | DI.MG.S_ITS ---
MM diagnostic mammo unilat LT: 02/23/2025. BI-RADS: 3 CLINICAL: 84-year old female for left diagnostic mammogram. The patient presents for a follow-up. No Tyrer-Cuzick risk score calculation due to the patient's personal history of breast cancer. Patient reports a history of right breast carcinoma. Status- post right mastectomy with hormonal therapy. PRIOR EXAMS 07/07/2024, 12/05/2023, 11/13/2023, 01/19/2020, 12/04/2018. MAMMOGRAPHY TECHNIQUE: 2D and 3D (tomosynthesis) digital mammographic views obtained, with additional images as needed for full coverage. Current study was also evaluated with a Computer Aided Detection (CAD) system. DENSITY Left: C. The breast is heterogeneously dense, which may obscure small masses. MAMMOGRAPHY FINDINGS Left: Upper at 12:00, Middle depth: There is a stable focal asymmetry present. This finding is less conspicuous compared to the screening mammogram from 11/13/2023, and is similar compared to more remote priors. IMPRESSION: Left (Asymmetry): Upper at 12:00, Middle depth * Probably Benign. RECOMMENDATIONS Left: Upper at 12:00, Middle depth * Followup with diagnostic mammography in one year to demonstrate 2 year stability. COMMENTS: Findings and recommendations were conveyed to the patient during today's evaluation. OVERALL ASSESSMENT CATEGORY BI-RADS-3: Probably Benign. ELECTRONICALLY SIGNED: Arleth Mcknight M.D. on 02/23/2025 at 12:49:51 PM PT Interpreting Station ID: [id number]
== END ==
PROVIDERS: PCP Student in an Organized Health Care Education/Training Program; Referring Provider Student in an Organized Health Care Education/Training Program; Visit Provider Student in an Organized Health Care Education/Training Program
DX: R92.8 Other abnormal and inconclusive findings on diagnostic imaging of breast (principal); N64.89 Other specified disorders of breast; N63.20 Unspecified lump in the left breast, unspecified quadrant; R92.332 Mammographic heterogeneous density, left breast; R92.322 Mammographic fibroglandular density, left breast; Z90.11 Acquired absence of right breast and nipple; Z85.3 Personal history of malignant neoplasm of breast
CPT/HCPCS: 77063; 77067